=== PATIENT | female | born 1985 | race Caucasian/White ===

== ENCOUNTER 2016-09-18 16:30 | Inpatient (IN) | payer OTHER ==
[2016-09-18] MEDS ORDERED: TUBERCULIN PPD 5 TU/0.1ML SYRINGE (IN PATIENT USE ONLY) ID ONE (17:30)
[2016-09-18 17:53] VITALS: BMI 35.3
[2016-09-18 18:19] LABS: BASOPHIL 1.2 % (0-2.0); EOSINOPHIL 0.6 % (0-4.5); MCH 31.1 pg (25.7-33.7); MEAN PLT VOLUME 9.7 fl (7.5-11.1); NEUTROPHILS 69.7 % (42.8-82.8); PLATELET COUNT 175 K/MM3 (134-434); RDW 14.5 % (11.6-15.6)
[2016-09-18 18:36] LABS: INR 0.97 (0.82-1.09); PROTHROMBIN TIME (PATIENT) 10.7 SEC (9.98-11.88)
[2016-09-18 18:38] LABS: ACTIVATED PTT 24.8 SECONDS (26.9-34.4)
[2016-09-18 19:12] LABS: ANION GAP 9 (8-16); CALCIUM 8.7 mg/dL (8.5-10.1); CO2 22 mmol/L (21-32); CREATININE 0.7 mg/dL (0.55-1.02); GLUCOSE,RANDOM 97 mg/dL (74-106)
[2016-09-18] MEDS ORDERED: ELECTROLYTE-148 SOLN 1,000 ML IV ONE (19:20)
--- NOTE | 2016-09-18 20:12 | HP ---
Past Medical History - Primary Care Physician PCP:: Divine Zaman - Admission Chief Complaint: 30 yo P1 @40 wks today, with LOF since 12:55, clear fluid, Denies VB, or contructions, + FM History of Present Illness: 1. started as twin gestation, now vanishing twin 2. Maternal obesity, GCT wnl, last EFW 3940gm on 09/16/16, she had [id number] 2011, 22lb weight gain this 3. reports PPH 2011, Patient is not sure 4. GBS negative History Source: Patient Limitations to Obtaining History: No Limitations - Past Medical History ...: 2 ...Para: 1 ...Term: 1 ...LMP: 12/11/15 ... Weeks Gestation by Dates: 40.1 ...EDC by Dates: 09/17/16 - Past Surgical History Past Surgical History: Yes: None Hx Myomectomy: No Hx Transabdominal Cerclage: No - Smoking History Smoking history: Never smoked Have you smoked in the past 12 months: No - Alcohol/Substance Use Hx Alcohol Use: No - Social History History of Recent Travel: No Home Medications - Allergies Allergies/Adverse Reactions: Allergies Allergy/AdvReac Type Severity Reaction Status Date / Time No Known Allergies Allergy Verified 09/18/16 17:14 - Home Medications Home Medications: Ambulatory Orders Vit #108/Iron/FA [ One Tablet] 1 each PO DAILY 09/18/16 Review of Systems - Review of Systems Constitutional: reports: No Symptoms Eyes: reports: No Symptoms HENT: reports: No Symptoms Neck: reports: No Symptoms Cardiovascular: reports: No Symptoms Respiratory: reports: No Symptoms Gastrointestinal: reports: No Symptoms Genitourinary: reports: No Symptoms Breasts: reports: No Symptoms Reported Musculoskeletal: reports: No Symptoms Integumentary: reports: No Symptoms Neurological: reports: No Symptoms Endocrine: reports: No Symptoms Hematology/Lymphatic: reports: No Symptoms Psychiatric: reports: No Symptoms Physical Exam - Maternity Vital Signs: Vital Signs Temperature 98.2 F 09/18/16 20:00 Pulse Rate 90 09/18/16 20:00 Respiratory Rate 20 09/18/16 20:00 Blood Pressure 116/53 09/18/16 20:00 O2 Sat by Pulse Oximetry (%) Constitutional: Yes: Well Nourished HENT: Yes: WNL Neck: Yes: WNL Cardiovascular: Yes: WNL Lungs: Clear to auscultation Breast(s): Yes: WNL - Abdominal Exam/OB Fundal Height: 40 Number of Fetuses: Single Presentation: Vertex Contractions: No Monitor Mode: External Heart Rate (range): 130's mod varrieability, + accelerations, no decel Heart Rate Location: Midline Category: I Accelerations: Uniform Decelerations: None - Vaginal Exam/OB Vaginal Bleediing: No Speculum Exam: No (VE 09/16/16 - L/C/P, will deffer exam till uncomfortable) Amniotic Membrane Status: Ruptured Nitrazine Test: Positive Amniotic Fluid: Yes: Clear Presentation: Vertex/Position - Physical Exam Musculoskeletal: Yes: WNL Extremities: Yes: WNL Integumentary: Yes: WNL ...Motor Strength: WNL Psychiatric: Yes: WNL - Labs Lab Results: CBC, BMP 09/18/16 18:05 09/18/16 18:05 Assessment/Plan 30 yo P1 @ 40wks, with PROM not in labor Admit to L&D Labs, IVF, NPO Start Pitocin @ 1 mU/Min, increase Q 20min, till ctx Q 2-3 mins MF status reassuring
[2016-09-18] MEDS ORDERED: OXYTOCIN 15 UNITS/ LR 250 ML 250 ML IVPB SCH (20:30)
[2016-09-18 22:05] LABS: BASOPHIL 0.5 % (0-2.0); MCHC 34.4 g/dl (32.0-36.0); MEAN PLT VOLUME 10.1 fl (7.5-11.1); NEUTROPHILS 67.3 % (42.8-82.8); PLATELET COUNT 161 K/MM3 (134-434); RDW 14.3 % (11.6-15.6); WHITE BLOOD COUNT 7.6 K/mm3 (4.0-10.0)
[2016-09-18 22:20] LABS: INR 0.96 (0.82-1.09); PROTHROMBIN TIME (PATIENT) 10.5 SEC (9.98-11.88)
[2016-09-18 22:21] LABS: ANION GAP 9 (8-16); CALCIUM 8.2 mg/dL (8.5-10.1); CO2 21 mmol/L (21-32); CREATININE 0.6 mg/dL (0.55-1.02); GLUCOSE,RANDOM 79 mg/dL (74-106)
[2016-09-18 22:23] LABS: ACTIVATED PTT 26.5 SECONDS (26.9-34.4)
[2016-09-18] MEDS ORDERED: PROMETHAZINE HCL 25 MG/1 ML VIAL IVPUSH ONE (23:06)
[2016-09-18] MEDS ORDERED: BUTORPHANOL TARTRATE 1 MG/ML VIAL IVPUSH ONE (23:06)
--- NOTE | 2016-09-18 23:11 | PN ---
Progress Note, Labor Vaginal Exam #1 Labor Exam Date: 09/18/16 Labor Exam Time: 23:00 Heart Rate (range): 130's mod variability, +accels, - decels Dilatation: 4 Effacement (%): 50% Amniotic Membrane Status: Ruptured Presentation: Vertex/Position Station: -2
[2016-09-18] MEDS ORDERED: AMPICILLIN - 2 GM in SODIUM CHLORIDE 100 ML IVPB ONE (23:16)
[2016-09-19] MEDS: FENTANYL/BUPIVACAINE/NS/PF - PCEA - 50 ML DISP.SYRIN EP SCH (01:30)
[2016-09-19] MEDS ORDERED: ELECTROLYTE-148 SOLN 1,000 ML IV ONE (02:45)
[2016-09-19] MEDS ORDERED: AMPICILLIN - 2 GM in SODIUM CHLORIDE 100 ML IVPB ONE (07:00)
--- NOTE | 2016-09-19 07:31 | PN ---
Progress Note, Labor Vaginal Exam #2 Labor Exam Date: 09/19/16 Labor Exam Time: 07:15 Heart Rate (range): 130' + accels, no decels Dilatation: FD Effacement (%): 100 Amniotic Membrane Status: Bulging (forewaters, ROM) Presentation: Vertex/Position Station: -1 Remarks: start pushing
[2016-09-19] MEDS: MISOPROSTOL 200 MCG TABLET PV SCH ×2 (09:07→14:03)
--- NOTE | 2016-09-19 09:27 | PN ---
Delivery - Delivery Vaginal Delivery: No Problems Type of Anesthesia: Local, Epidural Episiotomy/Laceration: None EBL (cc): 400 Delivery, Single - Stages of Labor Date 1st Stage Initiatied: 09/18/16 Time 1st Stage Initiated: 23:00 Date 2nd Stage Initiated: 09/19/16 Time 2nd Stage Initiated: 07:30 Date of Delivery: 09/19/16 Time of Delivery: 09:02 Date Placenta Delivered: 09/19/16 Time Placenta Delivered: 09:05 Placenta: Yes: Spontaneous - Condition of Gender: Female Position: Left, OA - 1 Minute Total Score: 8 5 Minutes Total Score: 9 - Feeding Plan Initial Plan: Elected not to breastfeed exclusively throughout hospitalization Remarks - Remarks Remarks: Uncomplicated delivery of the head and shoulders terminal meconium noted Excessive bleeding noted, fundus was firm, but BELKYS was not ann, Cytotec 1000mg placed rectally
[2016-09-19] MEDS ORDERED: METHYLERGONOVINE MALEATE 0.2 MG/1 ML AMP IM PRN (09:28)
[2016-09-19] MEDS ORDERED: BENZOCAINE 28 GM HEMORRHOIDAL OINTMENT TP PRN (09:28)
[2016-09-19] MEDS ORDERED: WITCH HAZEL 50% (TUCKS) 40 PAD/JAR PAD TP PRN (09:28)
[2016-09-19] MEDS ORDERED: BISACODYL 10 MG SUPP.RECT RC PRN (09:28)
[2016-09-19] MEDS ORDERED: BENZOCAINE 20% 57 GM BOTTLE TP PRN (09:28)
[2016-09-19] MEDS ORDERED: D5W-LR W/ 20 UNITS OXYTOCIN 1,000 ML IV SCH (09:30)
[2016-09-19] MEDS ORDERED: DIPHENOXYLATE 2.5/ATROPINE.025 1 COMBO TABLET PO ONE ×2 (09:31→15:00)
[2016-09-19] MEDS: FERROUS SO4 325 MG TABLET (FP) PO SCH ×2 (10:00→22:00)
[2016-09-19] MEDS: PRENATAL VITAMINS W/ FOLIC ACID TABLET (FP) PO SCH (10:00)
[2016-09-19] MEDS: ACETAMINOPHEN 325 MG TABLET (FP) PO PRN (14:05)
[2016-09-19] MEDS: IBUPROFEN 600 MG TABLET (FP) PO PRN (14:05)
[2016-09-20] MEDS: FENTANYL/BUPIVACAINE/NS/PF - PCEA - 50 ML DISP.SYRIN EP SCH (02:00)
[2016-09-20] MEDS: AMPICILLIN - 1 GM in SODIUM CHLORIDE 100 ML IVPB SCH ×2 (03:02→03:04)
[2016-09-20] MEDS: ACETAMINOPHEN 325 MG TABLET (FP) PO PRN (06:22)
[2016-09-20 07:31] LABS: BASOPHIL 0.4 % (0-2.0); EOSINOPHIL 0.4 % (0-4.5); MCH 30.5 pg (25.7-33.7); MEAN CELL VOLUME 89.5 fl (80-96); MEAN PLT VOLUME 9.5 fl (7.5-11.1); NEUTROPHILS 79.1 % (42.8-82.8); PLATELET COUNT 148 K/MM3 (134-434); RDW 14.5 % (11.6-15.6); WHITE BLOOD COUNT 16.8 K/mm3 (4.0-10.0)
--- NOTE | 2016-09-20 08:25 | PN ---
Post Progress Note - Subjective Subjective: 30 yo P2 now no complains, tolerating PO, ambulating c/o some dysuria does not desire to breast feed Type of Delivery: Vital Signs: Vital Signs Temperature 97.0 F L 09/20/16 06:00 Pulse Rate 69 09/20/16 06:00 Respiratory Rate 20 09/20/16 06:00 Blood Pressure 118/77 09/20/16 06:00 O2 Sat by Pulse Oximetry (%) 99 09/19/16 10:50 Breast Exam: Yes: Soft Uterus: Yes: Fundus Firm Abdomen/GI: Yes: Abdomen soft, Passing flatus Lochia: Yes: Rubra Lochia, amount: Small Perineum: Yes: Intact Activity: Ambulating - Labs Labs: CBC WBC 16.8 K/mm3 (4.0-10.0) H D 09/20/16 06:40 RBC 3.83 M/mm3 (3.60-5.2) 09/20/16 06:40 Hgb 11.7 GM/dL (10.7-15.3) 09/20/16 06:40 Hct 34.3 % (32.4-45.2) 09/20/16 06:40 MCV 89.5 fl (80-96) 09/20/16 06:40 MCH 30.5 pg (25.7-33.7) 09/20/16 06:40 MCHC 34.0 g/dl (32.0-36.0) 09/20/16 06:40 RDW 14.5 % (11.6-15.6) 09/20/16 06:40 Plt Count 148 K/MM3 (134-434) 09/20/16 06:40 MPV 9.5 fl (7.5-11.1) 09/20/16 06:40 Neutrophils % 79.1 % (42.8-82.8) 09/20/16 06:40 Lymphocytes % 14.2 % (8-40) D 09/20/16 06:40 Monocytes % 5.9 % (3.8-10.2) 09/20/16 06:40 Eosinophils % 0.4 % (0-4.5) 09/20/16 06:40 Basophils % 0.4 % (0-2.0) 09/20/16 06:40 Assessment/Plan 30 yo P2 s/p , following PROM Doing well, VSS, Afibrile, H/H stable Send UA culture, use Tucks if still symptomatic tomorrow consider sending home on Antibiotics for presumed UTI will follow UA culture Plan to D/C 09/21/16
[2016-09-20] MEDS: PRENATAL VITAMINS W/ FOLIC ACID TABLET (FP) PO SCH (09:31)
[2016-09-20] MEDS: FERROUS SO4 325 MG TABLET (FP) PO SCH ×2 (09:31→21:09)
[2016-09-20 11:49] LABS: URINE APPEARANCE SLCLOUDY; URINE BILIRUBIN NEGATIVE (NEGATIVE); URINE BLOOD 3+ (NEGATIVE); URINE COLOR YELLOW; URINE GLUCOSE (UA) 1+ (NEGATIVE); URINE KETONE NEGATIVE (NEGATIVE); URINE NITRITE NEGATIVE (NEGATIVE); URINE UROBILINOGEN NEGATIVE mg/dL (0.2-1.0)
[2016-09-20 11:50] LABS: URINE LEUK ESTERASE 2+ (NEGATIVE); URINE PROTEIN 1+ (NEGATIVE)
[2016-09-20 12:01] LABS: URINE MUCUS RARE; URINE RBC 660 /hpf (0-3); URINE WBC 82 /hpf (3-5)
[2016-09-20] MEDS ORDERED: SENNOSIDES/DOCUSATE COMBO (SENNA PLUS) TABLET (UD) PO PRN (22:00)
[2016-09-21] MEDS: FENTANYL/BUPIVACAINE/NS/PF - PCEA - 50 ML DISP.SYRIN EP SCH (02:56)
[2016-09-21] MEDS: IBUPROFEN 600 MG TABLET (FP) PO PRN (03:08)
[2016-09-21] MEDS: ACETAMINOPHEN 325 MG TABLET (FP) PO PRN (03:08)
[2016-09-21 08:03] VITALS: BP 133/80; PULSE 64; TEMP 98
--- NOTE | 2016-09-21 09:04 | PN ---
Post Progress Note - Subjective Subjective: No complaints. Doing well. Afebrile, no pain, no or GI issues. Post Day: 2 Type of Delivery: Vital Signs: Vital Signs Temperature 98.0 F 09/21/16 07:30 Pulse Rate 64 09/21/16 07:30 Respiratory Rate 20 09/21/16 07:30 Blood Pressure 133/80 09/21/16 07:30 O2 Sat by Pulse Oximetry (%) 99 09/19/16 10:50 Breast Exam: Yes: Soft Uterus: Yes: Fundus Firm, Fundus below umbilicus, Non-tender Abdomen/GI: Yes: Abdomen soft, Passing flatus, Tolerating PO Lochia: Yes: Rubra Lochia, amount: Small Extremities: Yes: Calves non-tender, Edema (trace) Activity: Ambulating - Labs Labs: CBC WBC 16.8 K/mm3 (4.0-10.0) H D 09/20/16 06:40 RBC 3.83 M/mm3 (3.60-5.2) 09/20/16 06:40 Hgb 11.7 GM/dL (10.7-15.3) 09/20/16 06:40 Hct 34.3 % (32.4-45.2) 09/20/16 06:40 MCV 89.5 fl (80-96) 09/20/16 06:40 MCH 30.5 pg (25.7-33.7) 09/20/16 06:40 MCHC 34.0 g/dl (32.0-36.0) 09/20/16 06:40 RDW 14.5 % (11.6-15.6) 09/20/16 06:40 Plt Count 148 K/MM3 (134-434) 09/20/16 06:40 MPV 9.5 fl (7.5-11.1) 09/20/16 06:40 Neutrophils % 79.1 % (42.8-82.8) 09/20/16 06:40 Lymphocytes % 14.2 % (8-40) D 09/20/16 06:40 Monocytes % 5.9 % (3.8-10.2) 09/20/16 06:40 Eosinophils % 0.4 % (0-4.5) 09/20/16 06:40 Basophils % 0.4 % (0-2.0) 09/20/16 06:40 Assessment/Plan 32yo P2 s/p , doing well stable, afebrile. Elevated WBC is noted. Pt has no s/sx's of infection. Urine cx is still pending care instructions reviewed. Continue routine care. Ambulation encouraged Discharge instruction reviewed.
--- NOTE | 2016-09-21 09:07 | DS ---
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 Vital Signs: Vital Signs Temperature 98.0 F 09/21/16 07:30 Pulse Rate 64 09/21/16 07:30 Respiratory Rate 20 09/21/16 07:30 Blood Pressure 133/80 09/21/16 07:30 O2 Sat by Pulse Oximetry (%) 99 09/19/16 10:50 Constitutional: Yes: Well Nourished, No Distress, Calm Eyes: Yes: WNL, Conjunctiva Clear HENT: Yes: WNL, Atraumatic, Normocephalic Neck: Yes: WNL, Supple, Trachea Midline Cardiovascular: Yes: WNL, Regular Rate and Rhythm Respiratory: Yes: WNL, Regular, CTA Bilaterally Gastrointestinal: Yes: WNL, Normal Bowel Sounds, Soft ...Rectal Exam: Yes: WNL Renal/: Yes: WNL Pelvis: Yes: WNL External Genitalia: Yes: Normal Internal Exam Deferred: Yes ....Post : Yes: Uterus firm, Uterus non-tender Breast(s): Yes: WNL Musculoskeletal: Yes: WNL Extremities: Yes: WNL Edema: Yes Edema: LLE: Trace, RLE: Trace Integumentary: Yes: WNL Neurological: Yes: WNL, Alert, Oriented ...Motor Strength: WNL Psychiatric: Yes: WNL, Alert, Oriented Labs: CBC, BMP 09/20/16 06:40 09/18/16 21:15 Delivery - Delivery Vaginal Delivery: No Problems Type of Anesthesia: Epidural Episiotomy/Laceration: None EBL (cc): 400 Delivery, Single - Stages of Labor Date 1st Stage Initiatied: 09/18/16 Time 1st Stage Initiated: 23:00 Date 2nd Stage Initiated: 09/19/16 Time 2nd Stage Initiated: 07:30 Date of Delivery: 09/19/16 Time of Delivery: 09:02 Time Placenta Delivered: 09:05 Placenta: Yes: Spontaneous - 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 You may walk unlimited yoana of and climb stairs. You may resume driving the car when you feel safe and comfortable behind the wheel. No sexual activity as instructed. Wound care If you have a bandage, leave it on, and keep dry for 48-72 hours. After that time discard the outer bandage. If they are tapes on the skin under the out of bandage leave them in place. They will peel off in the next 7 to 10 days. Do Not Peel them off. You may shower the day after surgery. If there are tapes present on the skin, you may shower over them. Diet There are no dietary restrictions. Eat healthy, high-fiber foods. Drink 6 to 8 glasses of liquid each day. This will assist in keeping your bowels are regular. Pain management You may take Tylenol or acetaminophen or Ibuprofen (for example, Motrin, Advil etc.) from my pain prescription medication is ordered should be taken as prescribed for moderate to severe pain. Call MD for any of the following: Severe pain not relieved by medication Fever of 101 or higher Excessive bleeding or drainage on dressing Inability to urinate Referrals: Divine Zaman MD [Staff Physician] - Disposition: HOME - Home Medications Comprehensive Discharge Medication List: Ambulatory Orders Vit #108/Iron/FA [ One Tablet] 1 each PO DAILY 09/18/16
[2016-09-21] MEDS: PRENATAL VITAMINS W/ FOLIC ACID TABLET (FP) PO SCH (09:22)
[2016-09-21] MEDS: FERROUS SO4 325 MG TABLET (FP) PO SCH (09:22)
--- NOTE | 2016-09-23 17:10 | PATH ---
Surgical Pathology Report Patient Name: SENIA VEGA Med. Rec. 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 Specimen(s) Received PLACENTA Clinical History 06/2011 History of hemorrhage, vanishing twin Final Diagnosis PLACENTA, DELIVERY: FOCALLY DISRUPTED THIRD TRIMESTER PLACENTA WITH ACUTE CHORIOAMNIONITIS, 3 VESSEL UMBILICAL CORD WITH ACUTE FUNISITIS, AND SUBCHORIONIC AND INTERVILLOUS FIBRIN DEPOSITION. Electronically Signed Suleman Olvera M.D. Gross Description The specimen is received fresh labeled placenta and is a 596 gram, 21.0 x 18.5 x 2.5 cm. placenta with attached membranes and umbilical cord. The attached membranes are layne, translucent with focal opacities and insert marginally. The umbilical cord measures 31 cm. in length and averages 1.1 cm. in diameter. The cord inserts eccentrically, 3.5 cm. to the nearest margin. No true knots or strictures are identified. Cut surface of the umbilical cord reveals 3 vessels. The surface is braun blue with moderate fibrin deposition and appropriate caliber vessels. The maternal surface is red-brown with focal defects. Sectioning reveals red-brown, spongy parenchyma. No lesions are identified. Floor And Wall Applier Liquid sections are submitted in three cassettes as follows: 1- membrane rolls and umbilical cord; 2-3- full thickness sections of placenta. 09/22/2016 [facility]09/22/2016
== END 2016-09-21 12:00 | disposition home or self-care (01) | DRG 560 ==
LOC: JLDR 16:30 → J3W 09-19 11:01
PROVIDERS: ADMIT Obstetrics & Gynecology; ATTEND Obstetrics & Gynecology
PROC: 10E0XZZ Delivery of Products of Conception, External Approach (ICD-10-PCS; principal; 2016-09-19)
DX: O48.0 Post-term pregnancy (principal); Z3A.40 40 weeks gestation of pregnancy; O99.214 Obesity complicating childbirth; E66.8 Other obesity; Z68.35 Body mass index [BMI] 35.0-35.9, adult; Z37.0 Single live birth
CPT/HCPCS: 36415; 59409; 80048; 81003; 81015; 85025; 85610; 85730; 86593; 86850; 86900; 86901; 87086; 88307-TC